=== PATIENT | female | born 1950 | race Caucasian/White ===

== ENCOUNTER 2022-02-07 11:55 | Day surgery (SDC) | payer MEDICARE, OTHER ==
[~2022-02-07] VITALS: Ht 167.6 cm; Wt 65.4 kg
[~2022-02-07 11:55] MED LIST: COLESTID1 GM PO; LOVASTATIN10 MG PO; MELOXICAM15 MG PO; METOPROLOL SUCC50 MG PO
--- NOTE | 2022-02-07 13:21 | NUR ---
02/07/22 1321 Sne[place],Ak[place] 1314 PT ARRIVED TO PACU ON RA, PT WAKES EASILY AND DENIES PAIN AND NAUSEA, PLAN OF CARE DISCUSSED AND PT EASILY FALLS BACK TO SLEEP.
--- NOTE | 2022-02-07 16:27 | OR ---
[facility] [address], [place] [address] Signed DATE OF OPERATION: 02/07/2022 SURGEON: Vivian Mccurdy MD PREOPERATIVE DIAGNOSES: 1. Colon screening. 2. Family history of colon cancer half-sister. 3. Episodic diarrhea. POSTOPERATIVE DIAGNOSES: Sigmoid diverticulosis and mild proctitis. PROCEDURE: Total colonoscopy to the cecum with biopsy of rectum. ANESTHESIA: Intravenous sedation, fentanyl 150 mcg and Versed 5 mg. INDICATION: This 71-year-old white woman is a patient of Dr. Jaci Snell. She is here for colon screening. She does have family history of colon cancer in a half-sister. She has no symptoms of bleeding or constipation, but does have occasions of diarrhea. She has been prescribed colestipol, which has been helpful for her symptom control. She understands the risk of bleeding, infection, and perforation related to colonoscopy and wished to proceed. FINDINGS: The prep was excellent. Complete colonoscopy was undertaken to the cecum. She had numerous diverticula of the sigmoid colon, but no diverticula noted elsewhere. She had mild inflammation of the rectum for which biopsy was obtained. She did not have clear evidence of actual colitis pathologically otherwise, however. DESCRIPTION OF PROCEDURE: The patient was brought to the endoscopy suite and placed in the lateral decubitus position, given intravenous sedation to the point of slurred speech and nystagmus. Digital rectal examination was normal. An Olympus video colonoscope was passed into the rectum and manipulated throughout the colon, noting numerous diverticula of the sigmoid and left colon. The scope was ultimately advanced to the cecum. The ileocecal valve and appendiceal orifice were Electronically Signed By: VIVIAN MCCURDY MD 02/07/22 1627 PATIENT NAME: CESAR GARCIA OPERATIVE REPORT DATE OF : 50 REPORT #: [id number] PHYSICIAN: VIVIAN MCCURDY MD PCP: JACI SNELL MD REPORT IS CONFIDENTIAL AND NOT TO BE RELEASED WITHOUT AUTHORIZATION [facility] [address], [place] [address] Signed normal. The scope was withdrawn from that point and examination showed no sign of abnormality until the sigmoid once again demonstrating numerous diverticula. In the rectum, there was mild proctitis in the lowest portion, this was biopsied. The scope was removed and the patient was taken to the recovery room in good condition. CONCLUDING DIAGNOSES: 1. Diverticulosis. 2. Mild proctitis. PLAN: Would recommend fiber supplement such as Citrucel or Metamucil. Would recommend repeat colonoscopy in 10 years, sooner if clinically indicated. MD DAKSHA Dawn/MODL /[id number] cc: Jaci Snell MD Copies: JACI SNELL MD ~ Electronically Signed By: VIVIAN MCCURDY MD 02/07/22 1627 PATIENT NAME: CESAR GARCIA OPERATIVE REPORT DATE OF : 50 REPORT #: [id number] PHYSICIAN: VIVIAN MCCURDY MD PCP: JACI SNELL MD REPORT IS CONFIDENTIAL AND NOT TO BE RELEASED WITHOUT AUTHORIZATION
--- NOTE | 2022-02-09 14:31 | PATH ---
[facility] [address] [facility] [place] [address] Signed SPECIMEN(S): A RECTAL BIOPSY SPECIMEN SOURCE: A. RECTAL BIOPSY CLINICAL HISTORY: Post: Diverticulosis FINAL PATHOLOGIC DIAGNOSIS: Rectal biopsy: - Benign colonic mucosa, negative for specific diagnostic abnormality. JVR:sm:C2NR MICROSCOPIC EXAMINATION: Histologic sections of all submitted blocks are examined by light microscopy. These findings, together with the gross examination, support the pathologic diagnosis. GROSS DESCRIPTION: The specimen, labeled and designated "gerald Breen biopsy," is received in formalin and consists of three dominguez soft tissue fragments, ranging from 0.3 to 0.8 cm. Entirely submitted in (A1). HH (under the direct supervision of a pathologist) The Gross Description was prepared using a voice recognition system. The report was reviewed for accuracy; however, sound-alike word errors, addition and/or deletions may occur. If there is any question about this report, please contact Client Services. PERFORMING LABORATORY: The technical component was performed by [facility], [address] [place] [id number] (CLIA# [id number]). Professional interpretation was performed by [email or web address], [address] [place] [id number] (CLIA#: [id number]). Diagnostician: Gorge Alvarez MD Pathologist Electronically Signed 02/09/2022 PATIENT NAME: CESAR BREEN PATHOLOGY DATE OF : 50 REPORT #: [id number] PHYSICIAN: TOM LINN PCP: JACI BENZ MD REPORT IS CONFIDENTIAL AND NOT TO BE RELEASED WITHOUT AUTHORIZATION
== END 2022-02-07 13:55 | disposition home or self-care (01) ==
LOC: OPS 11:55 → DS 12:00 → OPS 13:00 → DS 13:00 → OPS 13:55
PROVIDERS: ATTEND Surgery
PROC: 0DBQ8ZX Excision of Anus, Via Natural or Artificial Opening Endoscopic, Diagnostic (ICD-10-PCS; principal; 2022-02-07 13:00)
DX: K57.30 Diverticulosis of large intestine without perforation or abscess without bleeding (principal); K62.89 Other specified diseases of anus and rectum; I10 Essential (primary) hypertension; Z80.0 Family history of malignant neoplasm of digestive organs
CPT/HCPCS: 88305; 99153; G0500; J2250; J3010; J7121